=== PATIENT | male | born 1980 | race Caucasian/White ===

== ENCOUNTER 2025-03-12 15:50 | Inpatient (IN) | payer OTHER ==
[~2025-03-12] VITALS: Ht 188 cm; Wt 74.8 kg
[2025-03-12 16:35] LABS: FRACTIONATED INSPIRED OXYGEN-V 21.0 %; SITE, VBG VBG - N/A; VBG BASE EXCESS -3.0 mmol/L (-2.0-3.0); VBG HCO3 21.8 mmol/L (22.0-29.0); VBG MetHb 0.0 % (0.5-1.5); VBG OXYGEN SATURATION 63.1 % (60.0-85.0); VBG PCO2 38.3 mmHg (38.0-54.0); VBG PH 7.373 (7.320-7.430); VBG PO2 36.5 mmHg (23.0-48.0); VBG TOTAL HEMOGLOBIN 14.7 G/dL (13.5-17.5)
[2025-03-12] MEDS: IV NS 0.9% 1,000 ML BAG IV ONE ×2 (16:35→17:30)
[2025-03-12] MEDS ORDERED: INSULIN REGULAR, HUMAN 100 UNIT/ML 10 ML VIAL ONE (16:46)
[2025-03-12 16:47] LABS: PLATELET COUNT (AUTO) 317 K/uL (150-450); RED BLOOD CELL COUNT(AUTO) 4.79 MIL/uL (4.5-6.0); RED CELL DISTRIBUTION WIDTH 12.5 % (11.5-15.0); WHITE BLOOD COUNT (AUTO) 4.7 K/uL (4.3-11.0)
[2025-03-12 16:49] LABS: APPEARANCE,URINE CLEAR (CLEAR); BLOOD, URINE NEGATIVE Ery/uL (NEGATIVE); LEUKOCYTE ESTERASE ,URINE NEGATIVE (NEGATIVE); NITRITE, URINE POSITIVE (NEGATIVE); UGLUCOSE 3+ mg/dL (NEGATIVE)
[2025-03-12] MEDS: INSULIN REGULAR, HUMAN 100 UNIT/ML 10 ML VIAL IV ONE (16:50)
[2025-03-12 16:58] LABS: CALCIUM, SERUM 8.8 mg/dL (8.5-10.1); CREATININE 1.1 mg/dL (0.6-1.3); PHOSPHORUS 4.3 mg/dL (2.5-4.9); SODIUM SERUM 129.0 mmol/L (136-145); UREA NITROGEN, BLOOD 30.0 mg/dL (7-18)
[2025-03-12 17:33] LABS: ADD URINE CULTURE YES; SQUAMOUS EPITHELIAL CELL,UR 0-2 /HPF (None Seen); YEAST,URINE Rare /HPF (None Seen)
[2025-03-12] MEDS ORDERED: INSU100I26 SQ (18:51)
[2025-03-12] MEDS ORDERED: INSU100I40 SQ (18:51)
[2025-03-12 19:00] VITALS: O2SAT 96
[2025-03-12] MEDS ORDERED: ONDANSETRON HCL/PF 4 MG/2 ML VIAL IVP PRN (20:30)
[2025-03-12] MEDS ORDERED: HYDROCODONE/APAP 5/325MG TABLET PO PRN (20:30)
[2025-03-12] MEDS ORDERED: DEXTROSE 50%-WATER 50 ML DISP.SYRIN IV PRN (20:30)
[2025-03-12] MEDS ORDERED: MAG HYDROX/AL HYDROX/SIMETH 30 ML UDC PO PRN (20:30)
[2025-03-12] MEDS ORDERED: ACETAMINOPHEN 325 MG TABLET PO PRN (20:30)
[2025-03-12] MEDS ORDERED: Z GUARD REMEDY 4 OZ OINT TP PRN (20:30)
[2025-03-12] MEDS ORDERED: TEMAZEPAM 15 MG CAPSULE PO PRN (20:30)
[2025-03-12] MEDS ORDERED: MAGNESIUM HYDROXIDE 30 ML UDC PO PRN (20:30)
[2025-03-12 21:31] VITALS: BP 128/84; TEMP 97.7; O2SAT 97
[2025-03-12] MEDS: BLOOD SUGAR DIAGNOSTIC 1 EACH STRIP IN SCH (22:35)
[2025-03-12] MEDS: INSULIN REGULAR, HUMAN 100 UNIT/ML 3 ML VIAL SQ PRN (22:36)
[2025-03-12] MEDS: INSULIN GLARGINE, 100 UNIT/ML CARTRIDGE SQ SCH (22:38)
[2025-03-12] MEDS ORDERED: CEFTRIAXONE 1GM BAG (ER ONLY) 50 ML IV ONE (22:47)
[2025-03-12] MEDS: CEFTRIAXONE 1 G in IV D5W 50 ML IV SCH (22:54)
[2025-03-12] MEDS: IV NS 0.9% 1,000 ML IV PRN (23:06)
[2025-03-13 06:00] VITALS: BP_SYST 125; BP_SYST 130; BP_SYST 138; BP_DIAS 75; BP_DIAS 80
[2025-03-13 06:40] LABS: PLATELET COUNT (AUTO) 311 K/uL (150-450); RED BLOOD CELL COUNT(AUTO) 4.70 MIL/uL (4.5-6.0); RED CELL DISTRIBUTION WIDTH 12.5 % (11.5-15.0); WHITE BLOOD COUNT (AUTO) 5.8 K/uL (4.3-11.0)
[2025-03-13 06:58] LABS: CALCIUM, SERUM 8.3 mg/dL (8.5-10.1); CREATININE 0.7 mg/dL (0.6-1.3); PHOSPHORUS 4.1 mg/dL (2.5-4.9); SODIUM SERUM 138.0 mmol/L (136-145); UREA NITROGEN, BLOOD 21.0 mg/dL (7-18)
[2025-03-13 07:27] LABS: LDL 89.0 mg/dL (0-99)
[2025-03-13] MEDS: PANTOPRAZOLE 40 MG TABLET.DR PO SCH (07:48)
[2025-03-13 08:00] VITALS: BP 130/84; TEMP 97.9; O2SAT 99
[2025-03-13] MEDS: INSULIN GLARGINE, 100 UNIT/ML CARTRIDGE SQ SCH (10:51)
[2025-03-13] MEDS ORDERED: CIPR-262 PO (12:15)
== END 2025-03-13 18:06 | disposition home or self-care (01) | DRG 422 ==
LOC: ER 16:18 → MED 21:03
PROVIDERS: ADMIT Nurse Practitioner Acute Care; ATTEND Nurse Practitioner Acute Care
DX: E86.0 Dehydration (principal); E87.1 Hypo-osmolality and hyponatremia; N39.0 Urinary tract infection, site not specified; E10.65 Type 1 diabetes mellitus with hyperglycemia; R55 Syncope and collapse; E87.5 Hyperkalemia; F17.210 Nicotine dependence, cigarettes, uncomplicated; M89.8X9 Other specified disorders of bone, unspecified site; Z79.4 Long term (current) use of insulin; Z71.6 Tobacco abuse counseling; R79.89 Other specified abnormal findings of blood chemistry
CPT/HCPCS: 36415; 71045-TC; 80048-TC; 80061-TC; 81001; 82803-TC; 82962-TC; 83735-TC; 84100-TC; 84443-TC; 85025-TC; 87086-TC; 93307-TC; A4223; G0378; J0696; J1815; J7030; J7060